=== PATIENT | female | born 1970 | race Caucasian/White ===

== ENCOUNTER 2016-12-10 09:20 | Emergency (ER) | payer OTHER ==
[2016-12-10 09:38] VITALS: BP 142/97
--- NOTE | 2016-12-10 10:33 | Emergency Department Report ---
ED Rash HPI - HPI Chief Complaint: Skin Rash Stated Complaint: BREAST PAIN Time Seen by Provider: 12/10/16 10:27 Duration: 7 days Location: Other (left breast) Rash Symptoms: Yes Itching, Yes Blistering, Yes Myalgias, No Facial Swelling, No Tongue/Oral Swelling, No Breathing Difficulties, No Choking Sensation, No Wheezing/Dyspnea, No Peeling, No Fever, No Lightheaded, No Malaise Severity: moderate Other History: Patient states approximately 7 days ago she began having left side back pain that has since resolved the pain then moved to her left breast and she had a rash that erupted on her breast. She also at that time admits to an itching/burning sensation in her left back. She admits to have on a mammogram in 2014 that was within normal. He is up-to-date on all her vaccines , and is positive for having chickenpox as a child. ED Review of Systems ROS: Stated complaint: BREAST PAIN Other details as noted in HPI Constitutional: denies: chills, fever Respiratory: denies: cough, shortness of breath, wheezing Cardiovascular: denies: chest pain, palpitations Gastrointestinal: denies: abdominal pain, nausea, diarrhea Genitourinary: denies: urgency, dysuria, discharge Musculoskeletal: as per HPI. denies: back pain, joint swelling, arthralgia Skin: as per HPI, rash. denies: lesions Neurological: denies: headache, weakness, paresthesias ED Past Medical Hx - Past Medical History Previous Medical History?: No - Surgical History Past Surgical History?: No - Social History Smoking Status: Never Smoker Substance Use Type: None - Medications Home Medications: Home Medications Medication Instructions Recorded Confirmed Last Taken Type Acyclovir [Zovirax Tab] 800 mg PO Q6HR #28 tab 12/10/16 Unknown Rx Ibuprofen [Motrin 800 MG tab] 800 mg PO BID PRN #20 tablet 12/10/16 Unknown Rx Rash Exam - Exam General: Vital signs noted. No distress. Alert and acting appropriately. HEENT: No Periorbital Edema, No Conjuctival Injection, No Chemosis, No Perioral Edema, No Tongue Edema, No Uvular Edema, No Compromised Airway, No Drooling Lungs: Yes Good Air Exchange (Normal Breath Sounds), No Wheezes, No Ronchi, No Stridor, No Cough, No Labored Respirations, No Retractions, No Use of Accessory Muscles, No Other Abnormal Lung Sounds Heart: Yes Regular, No Murmur Front/Back of Body, Lg (Color): 1 - appears to have scattered blisters, some that have scabbed over, others that are just erupting. TTP on left breast at the rash, ttp in left thoracic back, positive for itching in left thoracic back. Skin: Yes Urticarial Rash, Yes Maculopapular Rash, Yes Tenderness, Yes Erythema , Yes Edema, Yes Encrustations, No Morbilliform rash, No Bulla(e), No Excoriations, No Weeping Other: Positive: Abdomen Normal, Neurologic Normal, Musculoskeletal Normal ED Course Vital Signs 12/10/16 09:23 Temperature 97.9 F Pulse Rate 87 Respiratory 18 Rate Blood Pressure 142/97 O2 Sat by Pulse 100 Oximetry ED Medical Decision Making - Medical Decision Making Patient presents with what appears to be shingles. I will give her acyclovir and ibuprofen. I will have her follow-up with her PCP outpatient. - Differential Diagnosis herpes, shingles Critical Care Time: No Critical care attestation.: If time is entered above; I have spent that time in minutes in the direct care of this critically ill patient, excluding procedure time. ED Disposition Clinical Impression: Shingles rash Disposition: DISCHARGED TO HOME OR SELFCARE Is pt being admited?: No Does the pt Need Aspirin: No Condition: Stable Instructions: Herpes Zoster (ED) Additional Instructions: Follow up with your primary care physician as discussed. Prescriptions: Acyclovir [Zovirax Tab] 800 mg PO Q6HR #28 tab Ibuprofen [Motrin 800 MG tab] 800 mg PO BID PRN #20 tablet PRN Reason: Pain Referrals: PRIMARY CARE, [Primary Care Provider] - 3-5 Days Time of Disposition: 10:41
== END 2016-12-10 10:45 | disposition home or self-care (01) ==
LOC: ED 09:20
DX: B02.9 Zoster without complications (principal)
CPT/HCPCS: 99282

== ENCOUNTER 2018-01-12 12:54 | Emergency (ER) | payer OTHER ==
[2018-01-12] MEDS ORDERED: TYLENOL PO ONE (13:49)
--- NOTE | 2018-01-12 13:49 | Emergency Department Report ---
Chief Complaint: Vaginal Bleeding Stated Complaint: 2 MTHS /VAGINAL BLEEDING - HPI History of Present Illness: 47 yo female is approximately 2 months . No care yet obtained. 4 pads of vaginal bleeding today with mild pelvic cramping. - Exam Vital Signs: Vital Signs 01/12/18 13:05 Temperature 97.4 F L Pulse Rate 108 H Respiratory 18 Rate Blood Pressure 154/105 [Left] O2 Sat by Pulse 99 Oximetry MSE screening note: Focused history and physical exam performed. Due to findings the following was ordered: ED Disposition for MSE Condition: Stable Referrals: PRIMARY CARE, [Primary Care Provider] - 3-5 Days
[2018-01-12 14:13] LABS: Basophils % (Auto) 0.6 % (0.0-1.8); Eosinophils % (Auto) 0.6 % (0.0-4.3); Hematocrit 44.1 % (30.3-42.9); Hemoglobin 14.5 gm/dl (10.1-14.3); Lymphocytes % (Auto) 15.1 % (13.4-35.0); Mean Corpuscular HGB Conc 33 % (30-34); Mean Corpuscular Hemoglobin 29 pg (28-32); Mean Corpuscular Volume 89 fl (79-97); Monocytes # (Auto) 0.4 K/mm3 (0.0-0.8); Monocytes % (Auto) 5.3 % (0.0-7.3); Platelet Count 283 K/mm3 (140-440); Red Blood Count 4.96 M/mm3 (3.65-5.03); Red Cell Distribution Width 13.4 % (13.2-15.2)
[2018-01-12 14:23] LABS: BUN/Creatinine Ratio 16; Blood Urea Nitrogen 8 mg/dL (7-17); Calcium 9.1 mg/dL (8.4-10.2); Hemolysis Index 8
--- NOTE | 2018-01-12 14:32 | Emergency Department Report ---
ED Abdominal Pain HPI - General Chief Complaint: Vaginal Bleeding Stated Complaint: 2 MTHS /VAGINAL BLEEDING Time Seen by Provider: 01/12/18 13:58 Source: patient, family Mode of arrival: Ambulatory Limitations: Language Barrier - History of Present Illness Initial Comments: Patient reports that she took test from her 19 and it was positive. Patient says she has an appointment tomorrow at [facility]. She says she started cramping with heavy bleeding and clot in this morning. She says she had used 4 pads prior to coming to the hospital. 4 para 3. Blood pressure is 154/105 the patient denies any history of high blood pressure. Denies any fever or chills. Denies any vaginal discharge. Abdominal pain is 4- 10 crampy located the pelvic area. Comes and goes. Nothing makes it better him and nothing makes it worse. Complaint: abdominal pain -: This morning Location: suprapubic Radiation: none Migration to: no migration Severity scale (0 -10): 4 Quality: cramping Consistency: intermittent Improves With: nothing Worsens With: nothing Context: other () Associated Symptoms: hematuria. denies: nausea, vomiting, diarrhea, fever, chills, constipation, dysuria, hematemesis, hematochezia, melena, anorexia, syncope - Related Data LMP Date: 11/27/17 Previous Rx's Medication Instructions Recorded Last Taken Type Acyclovir [Zovirax Tab] 800 mg PO Q6HR #28 tab 12/10/16 Unknown Rx Ibuprofen [Motrin 800 MG tab] 800 mg PO BID PRN #20 tablet 12/10/16 Unknown Rx Acetaminophen/Codeine [Tylenol 1 tab PO Q6H PRN #12 tab 01/12/18 Unknown Rx /Codeine # 3 tab] Allergies Allergy/AdvReac Type Severity Reaction Status Date / Time No Known Allergies Allergy Unverified 12/10/16 09:24 ED Review of Systems ROS: Stated complaint: 2 MTHS /VAGINAL BLEEDING Other details as noted in HPI Comment: All other systems reviewed and negative Constitutional: no symptoms reported ENT: denies: throat pain Respiratory: no symptoms reported Cardiovascular: denies: chest pain, palpitations, dyspnea on exertion, orthopnea , edema, syncope, paroxysmal nocturnal dyspnea Gastrointestinal: abdominal pain. denies: nausea, vomiting, diarrhea, constipation, hematemesis, melena, hematochezia Genitourinary: hematuria, other (vaginal bleeding and). denies: urgency, dysuria, frequency, discharge Musculoskeletal: denies: back pain, joint swelling, arthralgia, myalgia Skin: denies: rash Neurological: denies: headache ED Past Medical Hx - Past Medical History Previous Medical History?: No - Surgical History Past Surgical History?: No - Family History Family history: no significant - Social History Smoking Status: Never Smoker Substance Use Type: None - Medications Home Medications: Home Medications Medication Instructions Recorded Confirmed Last Taken Type Acyclovir [Zovirax Tab] 800 mg PO Q6HR #28 tab 12/10/16 Unknown Rx Ibuprofen [Motrin 800 MG tab] 800 mg PO BID PRN #20 tablet 12/10/16 Unknown Rx Acetaminophen/Codeine [Tylenol 1 tab PO Q6H PRN #12 tab 01/12/18 Unknown Rx /Codeine # 3 tab] ED Physical Exam - General Limitations: Language Barrier General appearance: alert, in no apparent distress - Head Head exam: Present: atraumatic, normocephalic, normal inspection - Eye Eye exam: Present: normal appearance, PERRL, EOMI Pupils: Present: normal accommodation - ENT ENT exam: Present: normal exam, normal orophraynx, mucous membranes moist - Neck Neck exam: Present: normal inspection, full ROM. Absent: tenderness, meningismus, lymphadenopathy, thyromegaly - Respiratory Respiratory exam: Present: normal lung sounds bilaterally. Absent: respiratory distress, chest wall tenderness, accessory muscle use - Cardiovascular Cardiovascular Exam: Present: regular rate, normal rhythm, normal heart sounds - GI/Abdominal GI/Abdominal exam: Present: soft, tenderness (pelvic), normal bowel sounds. Absent: distended, guarding, rebound, rigid, organomegaly, mass, bruit, pulsatile mass, hernia - External exam: Present: bleeding. Absent: erythema, swelling, lesions, lacerations, ecchymosis Speculum exam: Present: vaginal bleeding, other (large amount of clot). Absent : normal speculum exam, erythema, vaginal discharge, cervical discharge, foreign body - Expanded Exam Expanded Female exam: Present: other (large amount of vaginal clots.) External exam: Present: bleeding Amniotic fluid: Present: none Speculum exam: Present: cervical OS open, vaginal bleeding - Extremities Exam Extremities exam: Present: normal inspection, full ROM, normal capillary refill , other (no clubbing, cyanosis or edema. +2 pulses all extremities and no neurovascular compromise). Absent: tenderness, pedal edema, joint swelling, calf tenderness - Back Exam Back exam: Present: normal inspection, full ROM, other. Absent: tenderness, CVA tenderness (R) (ambulates without any difficulties), CVA tenderness (L), muscle spasm, paraspinal tenderness, vertebral tenderness, rash noted - Neurological Exam Neurological exam: Present: alert, oriented X3, normal gait - Psychiatric Psychiatric exam: Present: normal affect, normal mood - Skin Skin exam: Present: warm, dry, intact, normal color. Absent: rash ED Course Vital Signs 01/12/18 01/12/18 01/12/18 13:05 15:17 16:41 Temperature 97.4 F L 98.2 F Pulse Rate 108 H 90 Respiratory 18 17 16 Rate Blood Pressure 154/105 171/87 [Left] O2 Sat by Pulse 99 98 Oximetry 01/12/18 01/12/18 17:25 17:29 Temperature 99.3 F Pulse Rate 94 H Respiratory 12 12 Rate Blood Pressure 142/88 [Left] O2 Sat by Pulse 98 98 Oximetry - Reevaluation(s) Reevaluation #1: 01/12/18 16:38 Patient is stable. Ultrasound revealed no IUP but patient with positive serum hCG. This was relayed to patient and she is very emotional along with family member. Emotional support given. Exam with large amount of clots from vaginal area. Cervical os is open ED Medical Decision Making - Lab Data Result diagrams: 01/12/18 13:53 01/12/18 13:53 Lab Results 01/12/18 01/12/18 01/12/18 Range/Units 13:53 13:53 13:53 WBC 6.8 (4.5-11.0) K/mm3 RBC 4.96 (3.65-5.03) M/mm3 Hgb 14.5 H (10.1-14.3) gm/dl Hct 44.1 H (30.3-42.9) % MCV 89 (79-97) fl MCH 29 (28-32) pg MCHC 33 (30-34) % RDW 13.4 (13.2-15.2) % Plt Count 283 (140-440) K/mm3 Lymph % (Auto) 15.1 (13.4-35.0) % [place] % (Auto) 5.3 (0.0-7.3) % Eos % (Auto) 0.6 (0.0-4.3) % Baso % (Auto) 0.6 (0.0-1.8) % Lymph # 1.0 L (1.2-5.4) K/mm3 [place] # 0.4 (0.0-0.8) K/mm3 Eos # 0.0 (0.0-0.4) K/mm3 Baso # 0.0 (0.0-0.1) K/mm3 Seg Neutrophils % 78.4 H (40.0-70.0) % Seg Neutrophils # 5.4 (1.8-7.7) K/mm3 Sodium 138 (137-145) mmol/L Potassium 4.8 (3.6-5.0) mmol/L Chloride 101.2 (98-107) mmol/L Carbon Dioxide 26 (22-30) mmol/L Anion Gap 16 mmol/L BUN 8 (7-17) mg/dL Creatinine 0.5 L (0.7-1.2) mg/dL Estimated GFR > 60 ml/min BUN/Creatinine Ratio 16 % Glucose 120 H (65-100) mg/dL Calcium 9.1 (8.4-10.2) mg/dL HCG, Quant (0-4) mIU/mL Urine Color (Yellow) Urine Turbidity (Clear) Urine pH (5.0-7.0) Ur Specific [place] (1.003-1.030) Urine Protein (Negative) mg/dL Urine Glucose (UA) (Negative) mg/dL Urine Ketones (Negative) mg/dL Urine Blood (Negative) Urine Nitrite (Negative) Urine Bilirubin (Negative) Urine Urobilinogen (<2.0) mg/dL Ur Leukocyte Esterase (Negative) Urine WBC (Auto) (0.0-6.0) /HPF Urine RBC (Auto) (0.0-6.0) /HPF Urine Mucus /HPF Blood Type A POSITIVE 01/12/18 01/12/18 Range/Units 13:53 15:40 WBC (4.5-11.0) K/mm3 RBC (3.65-5.03) M/mm3 Hgb (10.1-14.3) gm/dl Hct (30.3-42.9) % MCV (79-97) fl MCH (28-32) pg MCHC (30-34) % RDW (13.2-15.2) % Plt Count (140-440) K/mm3 Lymph % (Auto) (13.4-35.0) % [place] % (Auto) (0.0-7.3) % Eos % (Auto) (0.0-4.3) % Baso % (Auto) (0.0-1.8) % Lymph # (1.2-5.4) K/mm3 [place] # (0.0-0.8) K/mm3 Eos # (0.0-0.4) K/mm3 Baso # (0.0-0.1) K/mm3 Seg Neutrophils % (40.0-70.0) % Seg Neutrophils # (1.8-7.7) K/mm3 Sodium (137-145) mmol/L Potassium (3.6-5.0) mmol/L Chloride (98-107) mmol/L Carbon Dioxide (22-30) mmol/L Anion Gap mmol/L BUN (7-17) mg/dL Creatinine (0.7-1.2) mg/dL Estimated GFR ml/min BUN/Creatinine Ratio % Glucose (65-100) mg/dL Calcium (8.4-10.2) mg/dL HCG, Quant 8884 H (0-4) mIU/mL Urine Color Red (Yellow) Urine Turbidity Cloudy (Clear) Urine pH 6.0 (5.0-7.0) Ur Specific [place] 1.023 (1.003-1.030) Urine Protein 100 mg/dl (Negative) mg/dL Urine Glucose (UA) Neg (Negative) mg/dL Urine Ketones Neg (Negative) mg/dL Urine Blood Lg (Negative) Urine Nitrite Neg (Negative) Urine Bilirubin Neg (Negative) Urine Urobilinogen < 2.0 (<2.0) mg/dL Ur Leukocyte Esterase Neg (Negative) Urine WBC (Auto) 15.0 H (0.0-6.0) /HPF Urine RBC (Auto) 183.0 (0.0-6.0) /HPF Urine Mucus 3+ /HPF Blood Type Culture pending - Radiology Data Radiology results: report reviewed Ultrasound transvaginal and pelvic revealed endometrial stripe is thickened 2 cm. No evidence of intrauterine . Uterus is otherwise unremarkable. Simple appearing cyst visualized in the left ovary. Right ovary was not visualized. No abnormal adnexal masses are seen on the right. Recommend serial beta hCG units and follow-up pelvic ultrasound if clinically indicated. Ectopic cannot be excluded - Medical Decision Making ED course: Patient presented to the emergency room with her family member reports that she started having vaginal bleeding and in the morning in and it stops and then it would come. She said that she is passing clots. Patient has an appointment with [facility] tomorrow. She says she to 2 tests 2 weeks prior to today and there were positive. Ultrasound report revealed no IUP but positive gestational sac. Left ovary with cyst right ovary not visualized. Pelvic exam with large amount of blood in vaginal vault with cervical os is open. Extracted large of amount of blood that clotted from patient vaginal vault that came out with pelvic exam while speculum was in vaginal vault. hormone test is positive. Patient also had lab work done which showed that she had large amount of blood in her urine with some white cells with no bacteria. I collaborated with Dr. Guevara on patient care. It was decided that patient will be discharged home to follow up with [facility]. She has an appointment for 11/16/2017. Patient and family was very emotional about this result of ultrasound. Emotional support given to the best of my ability. Patient had no acute blood loss based on CBC results. Please refer to radiology section and also lab section for details on lab. Patient was discharged home with prescription for Tylenol 3. She essentially had a spontaneous miscarriage. Discharge home with her family in stable condition Critical care attestation.: If time is entered above; I have spent that time in minutes in the direct care of this critically ill patient, excluding procedure time. ED Disposition Clinical Impression: Pelvic pain, Vaginal bleeding, abnormal, Elevated serum hCG, Spontaneous miscarriage Disposition: - TO HOME OR SELFCARE Is pt being admited?: No Does the pt Need Aspirin: No Condition: Stable Instructions: Spontaneous Miscarriage (ED), Abdominal Pain (ED) Additional Instructions: Keep appointment with [facility] for tomorrow. Please return to the emergency room or at [facility] for repeat pelvic ultrasound and hormone tests on 01/15/2018. Increase your fluid intake I am sorry that you going through this stressful time in utilized. I will say a prayer for you Prescriptions: Acetaminophen/Codeine [Tylenol /Codeine # 3 tab] 1 tab PO Q6H PRN #12 tab PRN Reason: Pain Referrals: [facility] [Provider Group] - 01/13/18 PRIMARY CARE, [Primary Care Provider] - 2-3 Days follow-up with, [facility] or emergency room [Other] - 01/15/18 (For repeat hormone and pelvic ultrasound in 3 days.) Forms: Accompanied Note, Work/School Release Form(ED) Print Language: BELGIAN
--- NOTE | 2018-01-12 15:52 | Ultrasound Report ---
FINAL REPORT PROCEDURE: US OB < = 14 WEEKS FETUS TECHNIQUE: Real-time transabdominal sonography of the uterus, placenta, amniotic fluid, adnexa, and fetus was performed with image documentation. Measurements were obtained to determine age/size. M-mode Doppler was used to document heartbeat. CPT 77343 HISTORY: Vaginal bleeding COMPARISON: Transvaginal OB ultrasound also performed today. FINDINGS: Report for this exam was created utilizing images from both transabdominal and transvaginal OB ultrasound both of which were performed today. Uterus is visualized in the midline measuring 11.7 x 5.7 x 6.6 centimeter. No uterine masses are seen. The endometrial stripe is thickened measuring 2 centimeters however I do not see a gestational sac or fluid collection. No free fluid is seen in the cul-de-sac. The right ovary was not visualized with transabdominal or transvaginal scanning. The left ovary was visualized transabdominally measuring 3.3 x 2.2 x 3.5 centimeter and contained a simple appearing cyst measuring 2.1 centimeter. Small nabothian cysts are visualized. IMPRESSION: Endometrial stripe is thickened measuring 2 centimeters. No evidence of intrauterine . Uterus is otherwise unremarkable. Simple appearing cyst visualized in the left ovary as described. Right ovary was not visualized. No abnormal adnexal masses are seen on the right. Recommend following serial beta HCG units and follow-up pelvic ultrasound if clinically indicated. Ectopic cannot be excluded.
--- NOTE | 2018-01-12 15:54 | Ultrasound Report ---
FINAL REPORT PROCEDURE: US OB TRANSVAGINAL TECHNIQUE: Real-time transvaginal sonography of the uterus, placenta, amniotic fluid, adnexa, and fetus was performed with image documentation. Measurements were obtained to determine age/size. M-mode Doppler was used to document heartbeat. CPT 27899 HISTORY: vaginal bleeding COMPARISON: Transabdominal OB ultrasound also performed today. FINDINGS: Report for this exam was created utilizing images from both transabdominal and transvaginal OB ultrasound both of which were performed today. Uterus is visualized in the midline measuring 11.7 x 5.7 x 6.6 centimeter. No uterine masses are seen. The endometrial stripe is thickened measuring 2 centimeters however I do not see a gestational sac or fluid collection. No free fluid is seen in the cul-de-sac. The right ovary was not visualized with transabdominal or transvaginal scanning. The left ovary was visualized transabdominally measuring 3.3 x 2.2 x 3.5 centimeter and contained a simple appearing cyst measuring 2.1 centimeter. Small nabothian cysts are visualized. IMPRESSION: Endometrial stripe is thickened measuring 2 centimeters. No evidence of intrauterine . Uterus is otherwise unremarkable. Simple appearing cyst visualized in the left ovary as described. Right ovary was not visualized. No abnormal adnexal masses are seen on the right. Recommend following serial beta HCG units and follow-up pelvic ultrasound if clinically indicated. Ectopic cannot be excluded.
[2018-01-12 15:57] LABS: Bilirubin,Urine NEG (Negative); Blood,Urine LG (Negative); Color,Urine Red (Yellow); Mucus,Urine 3+ /HPF; Urobilinogen,Urine < 2.0 mg/dL (<2.0)
[2018-01-12 17:37] VITALS: BP 142/88
== END 2018-01-12 17:29 | disposition home or self-care (01) ==
LOC: ED 12:54
DX: O03.9 Complete or unspecified spontaneous abortion without complication (principal); Z3A.08 8 weeks gestation of pregnancy
CPT/HCPCS: 36415; 76801; 76817; 80048; 81001; 84702; 85025; 86900; 86901; 87086; 99285